=== PATIENT | male | born 1990 | race Caucasian/White ===

== ENCOUNTER 2018-05-09 15:34 | Emergency (ER) | payer OTHER ==
[~2018-05-09] VITALS: Ht 175.2 cm; Wt 70.3 kg
[2018-05-09 15:41] VITALS: BP 125/77
[2018-05-09] MEDS ORDERED: KEFLEX500 M1 PO (15:59)
[2018-05-09] MEDS ORDERED: IBUPROFEN 800800 MG PO (15:59)
[2018-05-09] MEDS ORDERED: BACTRIM DS TAB1 EACH PO (15:59)
== END 2018-05-09 16:08 | disposition home or self-care (01) ==
LOC: M.ERS 15:34
DX: L03.116 Cellulitis of left lower limb (principal); F17.210 Nicotine dependence, cigarettes, uncomplicated

== ENCOUNTER 2018-05-12 15:52 | Emergency (ER) | payer OTHER ==
[~2018-05-12] VITALS: Ht 175.3 cm; Wt 72.6 kg
[~2018-05-12 15:52] MED LIST: BACTRIM DS TAB1 EACH PO; IBUPROFEN 800800 MG PO; KEFLEX500 M1 PO
[2018-05-12 16:31] LABS: ABSOLUTE EOSINOPHILS 0.1 thou/uL (0.0-0.7); ABSOLUTE LYMPHOCYTES 1.9 thou/uL (0.8-5.3); ABSOLUTE MONOCYTES 0.8 thou/uL (0.0-1.2); ABSOLUTE NEUTROPHILS 7.1 thou/uL (1.6-8.1); BASOPHILS 0.4 %; EOSINOPHILS 0.9 %; HEMATOCRIT 43.7 % (42.0-52.0); HEMOGLOBIN 14.5 gm/dL (14.0-18.0); LYMPHOCYTES 19.2 %; MCH 30.7 pg (26.0-34.0); MCHC 33.3 g/dL (28.0-37.0); MCV 92.2 fL (80.0-100.0); MONOCYTES 8.5 %; MPV 8.4 fl. (7.2-11.1); NUCLEATED RBCS 0 /100WBC; PLATELET COUNT* 260 thou/uL (150-400); RBC 4.74 mil/uL (4.50-6.00); RDW-CV 14.1 % (10.5-14.5); WBC 9.9 thou/uL (4.0-11.0)
[2018-05-12 16:40] LABS: CREATININE 1.1 mg/dL (0.6-1.3); POTASSIUM 4.4 mmol/L (3.5-5.1)
[2018-05-12 16:53] LABS: ALBUMIN 3.7 g/dL (3.4-5.0); TOTAL BILIRUBIN 0.2 mg/dL (<0.1-1.0); TOTAL PROTEIN 7.3 g/dL (6.4-8.2)
[2018-05-12 17:39] LABS: ESR (SEDRATE) 13 mm/hr (0-15)
[2018-05-12] MEDS ORDERED: KEFLEX500 M1 PO (17:45)
[2018-05-12 18:04] VITALS: BP 125/71
== END 2018-05-12 18:05 | disposition home or self-care (01) ==
LOC: M.ERS 15:52
PROVIDERS: Personal Emergency Response Attendant
DX: L02.416 Cutaneous abscess of left lower limb (principal)